=== PATIENT | male | born 1950 | race Caucasian/White ===

== ENCOUNTER 2021-05-02 08:55 | Day surgery (SDC) | payer MEDICARE, OTHER ==
[~2021-05-02] VITALS: Ht 167.6 cm; Wt 89.5 kg
[2021-05-02] MEDS ORDERED: TRAM50 PO (09:28)
[2021-05-02] MEDS ORDERED: MELO7.5 PO (09:28)
[2021-05-02] MEDS ORDERED: TAMSULOSIN HCL0.4 M1 PO (09:29)
[2021-05-02] MEDS ORDERED: SILD50TA PO (09:43)
[2021-05-02] MEDS ORDERED: ALPR.5 PO (09:44)
--- NOTE | 2021-05-02 10:17 | NUR ---
05/02/21 Araceli Lockhart AT APPROX 10:00, TIMEOUT PERFORMED FOR RIGHT INTERSCALENE BLOCK. VS MONITORED CONTINUOUSLY, SUPPLEMENTAL OXYGEN PROVIDED BY MASK. PT TOLERATED PROCEDURE WELL.
--- NOTE | 2021-05-02 10:42 | NUR ---
05/02/21 1042 Ira Gaviria 1 MG EPI ADDED TO EACH OF THE FIRST 3 BAGS OF LR PER ORDER FOR IRRIGATION AT [facility] BY DR HOANG.
== END 2021-05-02 12:42 | disposition home or self-care (01) ==
LOC: ORSCSDS 08:55
PROVIDERS: Orthopaedic Surgery
PROC: 0LM14ZZ Reattachment of Right Shoulder Tendon, Percutaneous Endoscopic Approach (ICD-10-PCS; principal; 2021-05-02 10:15)
PROC: 0RNJ4ZZ Release Right Shoulder Joint, Percutaneous Endoscopic Approach (ICD-10-PCS; principal; 2021-05-02 10:15)
DX: M75.121 Complete rotator cuff tear or rupture of right shoulder, not specified as traumatic (principal); M75.21 Bicipital tendinitis, right shoulder; M75.41 Impingement syndrome of right shoulder; G47.33 Obstructive sleep apnea (adult) (pediatric); K21.9 Gastro-esophageal reflux disease without esophagitis; F41.9 Anxiety disorder, unspecified; Z79.899 Other long term (current) drug therapy
CPT/HCPCS: C1713; J0171; J0690; J1100; J1885; J2250; J2370; J2405; J2704; J3010; J7120

== ENCOUNTER 2022-02-18 16:22 | Inpatient (IN) | payer MEDICARE, OTHER ==
[~2022-02-18] VITALS: Ht 175.3 cm; Wt 87.8 kg
[~2022-02-18 16:22] MED LIST: ALPR.5 PO; MELO7.5 PO; SILD50TA PO; TAMSULOSIN HCL0.4 M1 PO; TRAM50 PO
[2022-02-18 18:19] LABS: Albumin, Blood 3.6 g/dL (3.4-5.0); Albumin/Globulin Ratio 1.1 (0.8-1.8); Bilirubin, Total 0.5 mg/dL (0.1-1.0); Bun/Creatinine Ratio 17.4 (12.0-20.0); Calcium, Blood 8.4 mg/dL (8.5-10.1); Creatinine, Blood 1.15 mg/dL (0.60-1.20); Globulin, Blood 3.2 g/dL (2.2-4.0); Potassium, Blood 4.8 mmol/L (3.5-5.5); Total Protein, Blood 6.8 g/dL (6.4-8.2)
[2022-02-18 19:23] LABS: BASOPHILS ABSOLUTE AUTO 0.02 K/mm3 (0.00-0.23); BASOPHILS PERCENT AUTO 1 % (0-2); EOSINOPHILS ABSOLUTE AUTO 0.04 K/mm3 (0.00-0.68); EOSINOPHILS PERCENT AUTO 1 % (0-6); Hematocrit 42.8 % (37.0-53.0); Hemoglobin 14.8 g/dL (13.5-17.5); IMMATURE GRAN ABSOLUTE AUTO 0.01 K/mm3 (0.00-0.10); IMMATURE GRAN PERCENT AUTO 0 % (0-1); LYMPHOCYTES ABSOLUTE AUTO 0.48 K/mm3 (0.84-5.20); LYMPHOCYTES PERCENT AUTO 11 % (21-46); MONOCYTES PERCENT AUTO 2 % (4-13); Mean Corpuscular HGB 30.8 pg (26.0-34.0); Mean Corpuscular HGB Conc 34.6 g/dL (31.5-36.5); Mean Corpuscular Volume 89 fL (80-100); Mean Platelet Volume 8.7 fL (9.1-12.4); NEUTROPHILS ABSOLUTE AUTO 3.76 K/mm3 (1.96-9.15); NEUTROPHILS PERCENT AUTO 85 % (41-73); Platelet Count 174 K/mm3 (150-400); RDW Coefficient Variation 13.9 % (11.7-14.2); RDW Standard Deviation 45.1 fL (35.1-46.3); White Blood Cell Count 4.41 K/mm3 (4.00-11.30)
[2022-02-18] MEDS ORDERED: TAMSULOSIN HCL0.4 M1 PO (19:42)
[2022-02-18] MEDS ORDERED: NITROGLYCERIN0.4 M3 SL (19:42)
[2022-02-18] MEDS ORDERED: ALPR.5 PO (19:43)
[2022-02-18] MEDS ORDERED: AZIT250 PO (19:46)
[2022-02-18] MEDS ORDERED: Prednisone10 MG PO (19:46)
[2022-02-18 22:33] LABS: Anti-Xa UFH, PHA Monitoring <0.10 IU/mL; International Normalized Ratio 1.02; Prothrombin Time Results 10.7 Sec (9.7-11.5)
[2022-02-19 04:15] LABS: CHOL/HDL RATIO 4.1; Cholesterol 272 mg/dL (50-200); HDL Cholesterol 66 mg/dL (>39); Low Density Lipoprotein Chol 196 mg/dL (0-110); Triglycerides 52 mg/dL (30-160); Very Low Density Lipoprot Chol 10 mg/dL (6-32)
[2022-02-19 08:06] LABS: Influenza A, PCR NEGATIVE (NEGATIVE); Influenza B, PCR NEGATIVE (NEGATIVE); Resp Syncytial Virus, PCR NEGATIVE (NEGATIVE); SARS-Cov-2 (COVID-19) PCR, MMC NEGATIVE (NEGATIVE)
--- NOTE | 2022-02-19 08:52 | NUR ---
NURSING PCU DAYSHIFT: Assumed care of pt at approx 0700. A/O, very pleasant, cooperative w/care. Denies any pain/discomfort. Skin intact w/no breakdown noted. Ambulates independently and w/o difficulty, no c/o dizziness/light headedness. Tele in place, NSR w/HR 78, BP 130/100 prior to a.m. meds, no c/o CP/pressure, no noted edema. L/S w/scattered coarseness and significant I/E wheeze, freq cough producing clear/blood tinged sputum, O2 sat mid 90's on RA. Abd SNT, BT+, voiding w/o difficulty per pt. PIV x1, hep gtt infusing as per pharmacy dosing. No s/s of acute distress this a.m. Seen by director private, plan for angiogram today, procedure discussed and education provided. HC staff currently at bedside for ECHO. Pt denies any current needs or questions regarding plan of care. Call light in reach, cont to monitor for changes.
--- NOTE | 2022-02-19 17:41 | NUR ---
NURSING PCU DAYSHIFT SUMMARY: Pt has done well t/o the shift. To HC at approx 1430 for angiogram, returned to room at approx 1700 w/R radial site. TR band and wrist board in place. Small hematoma formed above site, pressure held for 5 minutes, site soft and stable at this time. Family at bedside t/o majority of shift, plan of care and recovery process discussed, questions answered. Pt currently sitting up in bed having supper, no acute distress. Call light in reach, cont to monitor until rpt is given to NOC RN.
--- NOTE | 2022-02-19 21:32 | NUR ---
1999 DR TOLBERT TO ROOM, INFLATED TR BAND WITH 4 MORE MLS AIR DUE TO HEMATOMA
[2022-02-20 04:27] LABS: BASOPHILS ABSOLUTE AUTO 0.01 K/mm3 (0.00-0.23); BASOPHILS PERCENT AUTO 0 % (0-2); EOSINOPHILS ABSOLUTE AUTO 0.26 K/mm3 (0.00-0.68); EOSINOPHILS PERCENT AUTO 4 % (0-6); Hematocrit 38.4 % (37.0-53.0); Hemoglobin 13.4 g/dL (13.5-17.5); IMMATURE GRAN ABSOLUTE AUTO 0.03 K/mm3 (0.00-0.10); IMMATURE GRAN PERCENT AUTO 0 % (0-1); LYMPHOCYTES ABSOLUTE AUTO 1.55 K/mm3 (0.84-5.20); LYMPHOCYTES PERCENT AUTO 22 % (21-46); MONOCYTES PERCENT AUTO 9 % (4-13); Mean Corpuscular HGB Conc 34.9 g/dL (31.5-36.5); Mean Corpuscular Volume 89 fL (80-100); Mean Platelet Volume 9.3 fL (9.1-12.4); NEUTROPHILS ABSOLUTE AUTO 4.59 K/mm3 (1.96-9.15); NEUTROPHILS PERCENT AUTO 65 % (41-73); Platelet Count 163 K/mm3 (150-400); RDW Coefficient Variation 14.4 % (11.7-14.2); RDW Standard Deviation 46.5 fL (35.1-46.3); Red Blood Cell Count 4.32 M/mm3 (4.30-5.90); White Blood Cell Count 7.04 K/mm3 (4.00-11.30)
--- NOTE | 2022-02-20 04:44 | NUR ---
SHIFT SUMMARY PT AXO. VSS. WHEEZE REMAINS TO ALL LUNG PARKER, RELIEVED BY RT TREATMENTS. TR BAND IN PLACE UPON SHIFT START, INFLATED. DR TOLBERT INFLATED MORE UPON ASSESMENT. THIS RN ALLOWED 2 HOURS POST EXTRA INFLATION AND THEN BEGAN WITH DEFLATIONPROCESS, SUCCESFUL. HEMATOMA SOFT, SLIHTLY TENDER, NO CHANGES POST TOMASZ ASSESMENT OF SITE. AREA NOW COVERED WITH OPSITE AND ARMBOARD. PT DENYING CP/PRESSURE. OTHERWISE, INDEPENDENT IN ROOM.
[2022-02-20 04:48] LABS: Bun/Creatinine Ratio 21.8 (12.0-20.0); Calcium, Blood 8.2 mg/dL (8.5-10.1); Creatinine, Blood 1.24 mg/dL (0.60-1.20); Potassium, Blood 4.2 mmol/L (3.5-5.5)
[2022-02-20] MEDS ORDERED: ATOR40TA PO (09:15)
[2022-02-20] MEDS ORDERED: ALBU90OI INH (09:15)
[2022-02-20] MEDS ORDERED: Aspir 8181 MG PO (09:15)
[2022-02-20] MEDS ORDERED: CLOP75 PO (09:16)
[2022-02-20] MEDS ORDERED: METO25ER PO (09:16)
--- NOTE | 2022-02-20 10:20 | NUR ---
DISCHARGE HOME PT A&O X4, INDEPENDENT IN RM. FAMILY AT BEDSIDE. VSS. SPO2 > 92% ON RA. MONITOR SHOWING NSR, HR 70s-80s PRIOR TO TELEMETRY REMOVAL. DISCHARGE INSTRUCTIONS REVIEWED & SENT HOME W/ PT. PIV REMOVED. TRANSPARENT DRESSING & ARM BOARD REMAIN IN PLACE TO R RADIAL ACCESS SITE. PT TAKEN OUT BY WHEELCHAIR @ APPROX 0913.
== END 2022-02-20 10:00 | disposition home or self-care (01) | DRG 281 ==
LOC: ER 16:22 → PCU 21:38
PROVIDERS: Emergency Medicine; Internal Medicine Cardiovascular Disease; ADMIT Internal Medicine
PROC: 4A023N7 Measurement of Cardiac Sampling and Pressure, Left Heart, Percutaneous Approach (ICD-10-PCS; principal; 2022-02-19)
PROC: B211YZZ Fluoroscopy of Multiple Coronary Arteries using Other Contrast (ICD-10-PCS; 2022-02-19)
PROC: B215YZZ Fluoroscopy of Left Heart using Other Contrast (ICD-10-PCS; 2022-02-19)
PROC: B240ZZ3 Ultrasonography of Single Coronary Artery, Intravascular (ICD-10-PCS; 2022-02-19)
DX: I21.4 Non-ST elevation (NSTEMI) myocardial infarction (principal); Q24.5 Malformation of coronary vessels; E78.5 Hyperlipidemia, unspecified; R05.3 Chronic cough; U09.9 Post COVID-19 condition, unspecified; I24.9 Acute ischemic heart disease, unspecified; E66.3 Overweight; I10 Essential (primary) hypertension; R97.20 Elevated prostate specific antigen [PSA]; I25.10 Atherosclerotic heart disease of native coronary artery without angina pectoris; N28.9 Disorder of kidney and ureter, unspecified; N52.9 Male erectile dysfunction, unspecified; R09.3 Abnormal sputum; F10.10 Alcohol abuse, uncomplicated; Z20.822 Contact with and (suspected) exposure to COVID-19; Z68.28 Body mass index [BMI] 28.0-28.9, adult; Z87.891 Personal history of nicotine dependence; Z87.01 Personal history of pneumonia (recurrent); Z88.5 Allergy status to narcotic agent; Z79.899 Other long term (current) drug therapy; Z79.52 Long term (current) use of systemic steroids; Z79.2 Long term (current) use of antibiotics; Z79.891 Long term (current) use of opiate analgesic
CPT/HCPCS: 0241U; 36415; 71046; 76937; 80048; 80053; 80061; 83880; 84484; 85025; 85347; 85520; 85610; 85730; 92920; 93005; 93010; 93306; 93458; 94640; 94664; 94760; 99152; 99153; 99285-25; A9270; C1769; C1887; C1894; J1644; J2250; J3010; J7030; J7050; J7512; Q9967